=== PATIENT | male | born 1955 | race Caucasian/White ===

== ENCOUNTER 2019-12-06 06:23 | Inpatient (IN) | payer OTHER, BC ==
[2019-12-02 11:52] VITALS: BMI 34.4
[~2019-12-06 06:23] MED LIST: CELECOXIB 200 MG CAPSULE PO ONE; VANCOMYCIN 1,000 MG VIAL (RESTRICTED TO ID ONLY) IVPB ONE
[2019-12-06] MEDS ORDERED: MIDAZOLAM HCL 2 MG/2 ML SINGLE DOSE VIAL ONE ×2 (06:43→08:30)
[2019-12-06] MEDS ORDERED: BUPIVACAINE LIPOSOME/PF (EXPAREL) 266 MG/20 ML VIAL ONE (06:43)
[2019-12-06] MEDS ORDERED: SODIUM CHLORIDE 0.9% P/F 10 ML VIAL IJ ONE (06:43)
[2019-12-06] MEDS ORDERED: CELECOXIB 200 MG CAPSULE ONE (06:55)
[2019-12-06] MEDS ORDERED: SUCCINYLCHOLINE CHLORIDE 200 MG/10 ML SYRINGE ONE (07:11)
[2019-12-06] MEDS ORDERED: PROPOFOL 20 ML ONE (07:11)
[2019-12-06] MEDS ORDERED: ceFAZolin SODIUM 1 GM VIAL ONE ×4 (07:11→22:47)
[2019-12-06] MEDS ORDERED: BUPIVACAINE HCL/PF 0.5% (5MG/ML) 10 ML VIAL ONE (07:12)
[2019-12-06] MEDS ORDERED: VANCOMYCIN 1,000 MG VIAL (RESTRICTED TO ID ONLY) ONE (07:28)
[2019-12-06] MEDS ORDERED: MAG HYDROX/AL HYDROX/SIMETH 30 ML UNIT-DOSE CUP PO PRN (07:57)
[2019-12-06] MEDS ORDERED: MAGNESIUM HYDROX 2400MG/30ML ORAL SUSPENSION 30 ML CUP PO PRN (07:57)
[2019-12-06] MEDS ORDERED: ONDANSETRON 4 MG/2 ML VIAL IVPUSH PRN ×2 (07:57→10:49)
[2019-12-06] MEDS ORDERED: LACTATED RINGERS SOLUTION 1,000 ML IV SCH (08:00)
[2019-12-06] MEDS ORDERED: CEFAZOLIN 3 GM in DEXTROSE 5%-WATER - 100 ML IVPB ONE (08:00)
[2019-12-06] MEDS ORDERED: TRANEXAMIC ACID 1000 MG/10 ML VIAL IVPUSH ONE (08:00)
[2019-12-06] MEDS ORDERED: TRANEXAMIC ACID 1000 MG/10 ML VIAL ONE (08:19)
[2019-12-06] MEDS ORDERED: DEXAMETHASONE SOD PHOSPHATE 4 MG/1 ML VIAL ONE (08:20)
[2019-12-06] MEDS ORDERED: DESFLURANE GAS 240 ML BOTTLE IH ONE (09:23)
[2019-12-06] MEDS ORDERED: SEVOFLURANE 250 ML BTL ONE (09:23)
[2019-12-06] MEDS ORDERED: VANCOMYCIN 1,000 MG VIAL (RESTRICTED TO ID ONLY) IVPB ONE (09:38)
[2019-12-06] MEDS ORDERED: oxyCODONE HCL 5 MG TABLET PO PRN (10:49)
[2019-12-06] MEDS ORDERED: PROMETHAZINE HCL 25 MG/1 ML VIAL IVPUSH PRN (10:49)
[2019-12-06] MEDS: LOSARTAN POTASSIUM 50 MG TABLET PO SCH (15:39)
[2019-12-06] MEDS: SENNOSIDES/DOCUSATE COMBO (SENNA PLUS) TABLET (UD) PO SCH ×2 (16:00→21:34)
[2019-12-06] MEDS: PANTOPRAZOLE 40 MG TABLET PO SCH (16:00)
[2019-12-06] MEDS: MULTIVITAMINS (DAILY MVI) TABLET (FP) PO SCH (16:00)
[2019-12-06] MEDS ORDERED: SODIUM CHLORIDE 100 ML IVPB ONE ×2 (16:12→22:47)
[2019-12-06] MEDS: oxyCODONE HCL 5 MG TABLET PO PRN (16:37)
[2019-12-06] MEDS: ACETAMINOPHEN 325 MG TABLET (FP) PO SCH ×3 (16:41→23:19)
[2019-12-06] MEDS: CEFAZOLIN IVPB SCH ×2 (16:45→23:19)
[2019-12-06] MEDS: SODIUM CHLORIDE IVPB SCH ×2 (16:45→23:19)
[2019-12-06] MEDS: INSULIN (NOVOLOG MIX 70/30) 100 UNITS/ML MDV SQ SCH (16:50)
[2019-12-06] MEDS ORDERED: PT OWN MED DRAWER 7, Y5N ONE (19:26)
[2019-12-06] MEDS ORDERED: GABAPENTIN 300 MG CAPSULE PO SCH (22:00)
[2019-12-06] MEDS ORDERED: ATORVASTATIN CA 20 MG TABLET (FP) PO SCH (22:00)
[2019-12-07] MEDS: ACETAMINOPHEN 325 MG TABLET (FP) PO SCH ×2 (06:15→13:00)
[2019-12-07] MEDS: INSULIN (NOVOLOG MIX 70/30) 100 UNITS/ML MDV SQ SCH (07:00)
[2019-12-07] MEDS ORDERED: CLOPIDOGREL BISULFATE 75 MG TABLET (FP) PO SCH (08:00)
[2019-12-07 08:14] LABS: HEMATOCRIT 36.7 % (35.4-49); HEMOGLOBIN 12.5 GM/dl (11.7-16.9); MCH 30.1 pg (25.7-33.7); MCHC 34.2 g/dl (32.0-35.9); MEAN CELL VOLUME 88.2 fl (80-96); MEAN PLT VOLUME 9.7 fl (7.5-11.1); PLATELET COUNT 162 K/MM3 (134-434); RBC 4.16 M/mm3 (4.00-5.60); RDW 12.3 % (11.9-15.9); WHITE BLOOD COUNT 13.2 K/mm3 (4.0-10.8)
[2019-12-07] MEDS: SENNOSIDES/DOCUSATE COMBO (SENNA PLUS) TABLET (UD) PO SCH (09:44)
[2019-12-07] MEDS: PANTOPRAZOLE 40 MG TABLET PO SCH (09:44)
[2019-12-07] MEDS: MULTIVITAMINS (DAILY MVI) TABLET (FP) PO SCH (09:44)
[2019-12-07] MEDS: LOSARTAN POTASSIUM 50 MG TABLET PO SCH (09:44)
[2019-12-07] MEDS: oxyCODONE HCL 5 MG TABLET PO PRN (15:06)
[2019-12-07 15:13] VITALS: BP 115/61; PULSE 75; TEMP 97.9
[2019-12-07] MEDS ORDERED: PT OWN MED DRAWER 7, Y5N ONE (15:28)
== END 2019-12-07 16:36 | disposition home health service (06) | DRG 470 ==
LOC: FM/S 06:23
PROVIDERS: ADMIT Orthopaedic Surgery; ATTEND Orthopaedic Surgery
PROC: 8E0Y0CZ Robotic Assisted Procedure of Lower Extremity, Open Approach (ICD-10-PCS; 2019-12-06)
PROC: 0SRD0J9 Replacement of Left Knee Joint with Synthetic Substitute, Cemented, Open Approach (ICD-10-PCS; principal; 2019-12-06 08:33)
DX: M17.12 Unilateral primary osteoarthritis, left knee (principal)
CPT/HCPCS: 36415; 73560-TC-LT-FY; 82962; 85027; 88304-TC; 88311-TC; 94760; 97010-GP; 97116-GP; 97162-GP; U0003

== ENCOUNTER 2021-08-14 04:26 | Day surgery (SDC) | payer OTHER, BC ==
[2021-08-12 15:04] VITALS: BMI 34.8
[2021-08-14] MEDS ORDERED: PROPOFOL 20 ML ONE ×2 (09:11)
[2021-08-14] MEDS ORDERED: ROPIVACAINE HCL 0.5% 30ML VIAL ONE (09:45)
[2021-08-14] MEDS ORDERED: MIDAZOLAM HCL 2 MG/2 ML SINGLE DOSE VIAL ONE ×2 (09:48)
[2021-08-14] MEDS ORDERED: CEFAZOLIN 2 GM in DEXTROSE 5%-WATER - 100 ML IVPB ONE (10:00)
[2021-08-14] MEDS ORDERED: ceFAZolin SODIUM 1 GM VIAL IVPB ONE (10:28)
[2021-08-14] MEDS ORDERED: ONDANSETRON 4 MG/2 ML VIAL ONE (10:42)
[2021-08-14] MEDS ORDERED: DEXAMETHASONE SOD PHOSPHATE 4 MG/1 ML VIAL ONE (10:42)
[2021-08-14] MEDS ORDERED: ceFAZolin 2 GRAM PREMIX BAG IVPB ONE (12:00)
[2021-08-14] MEDS ORDERED: ceFAZolin SODIUM 1 GM VIAL ONE (12:03)
[2021-08-14] MEDS ORDERED: oxyCODONE HCL 5 MG TABLET PO PRN ×2 (12:28)
[2021-08-14] MEDS ORDERED: ONDANSETRON 4 MG/2 ML VIAL IVPUSH PRN (12:28)
[2021-08-14] MEDS ORDERED: LACTATED RINGERS SOLUTION 1,000 ML IV SCH (12:30)
[2021-08-14 12:38] VITALS: TEMP 98.8
[2021-08-14 14:10] VITALS: BP 151/70; PULSE 61
== END 2021-08-14 14:40 | disposition home or self-care (01) ==
LOC: JASU-SURG 04:26
PROVIDERS: ATTEND Orthopaedic Surgery
PROC: 0LM14ZZ Reattachment of Right Shoulder Tendon, Percutaneous Endoscopic Approach (ICD-10-PCS; principal; 2021-08-14 10:00)
PROC: 0RNJ4ZZ Release Right Shoulder Joint, Percutaneous Endoscopic Approach (ICD-10-PCS; 2021-08-14 10:00)
DX: M75.101 Unspecified rotator cuff tear or rupture of right shoulder, not specified as traumatic (principal); X58.XXXA Exposure to other specified factors, initial encounter; Y92.9 Unspecified place or not applicable; Y93.9 Activity, unspecified; I10 Essential (primary) hypertension; E11.9 Type 2 diabetes mellitus without complications
CPT/HCPCS: 29826; 29827; C1776; 82962; 94760

== ENCOUNTER 2021-09-25 04:27 | Day surgery (SDC) | payer OTHER, BC ==
[2021-09-23 10:59] VITALS: BMI 337.5
[~2021-09-25 04:27] MED LIST changes: +ACETAMINOPHEN 325 MG TABLET (FP) PO PRN; -CELECOXIB 200 MG CAPSULE PO ONE; -VANCOMYCIN 1,000 MG VIAL (RESTRICTED TO ID ONLY) IVPB ONE
[2021-09-25] MEDS ORDERED: TETRACAINE 0.5% OPHTH SOLN 2 ML BOTTLE ONE (07:30)
[2021-09-25] MEDS ORDERED: LIDOCAINE HCL/PF 1% SDV 5ML VIAL ONE (07:30)
[2021-09-25] MEDS ORDERED: POVIDONE-IODINE 5% OPHTHALMIC PREP 30 ML SOLUTION ONE (07:30)
[2021-09-25] MEDS ORDERED: KETOROLAC TROMETHAMINE 0.5% EYE DROP 1 DROP DROPS ONE (11:00)
[2021-09-25] MEDS ORDERED: OFLOXACIN 0.3% OPHTHALMIC SOLUTION 5 ML BOTTLE ONE (11:01)
[2021-09-25] MEDS ORDERED: PHENYLEPHRINE 2.5% OPTHALMIC DROP BOTTLE ONE (11:01)
[2021-09-25] MEDS ORDERED: CYCLOPENTOLATE HCL 1% OPHTH SOLN 2 ML BOTTLE ONE (11:01)
[2021-09-25] MEDS ORDERED: TROPICAMIDE 1% OPHTH SOLN 15 ML BOTTLE ONE (11:01)
[2021-09-25] MEDS: CYCLOPENTOLATE HCL 1% OPHTH SOLN 2 ML BOTTLE OP SCH ×3 (11:10→11:20)
[2021-09-25] MEDS: KETOROLAC TROMETHAMINE 0.5% EYE DROP 1 DROP DROPS OP SCH ×3 (11:10→11:20)
[2021-09-25] MEDS: OFLOXACIN 0.3% OPHTHALMIC SOLUTION 5 ML BOTTLE OP SCH ×3 (11:10→11:20)
[2021-09-25] MEDS: TROPICAMIDE 1% OPHTH SOLN 15 ML BOTTLE OP SCH ×3 (11:10→11:20)
[2021-09-25] MEDS: PHENYLEPHRINE 2.5% OPHTH SOLN 15 ML BOTTLE OP SCH ×3 (11:10→11:20)
[2021-09-25] MEDS ORDERED: MIDAZOLAM HCL 2 MG/2 ML SINGLE DOSE VIAL ONE (13:07)
[2021-09-25] MEDS ORDERED: LIDOCAINE HCL/PF 2% SDV 5ML VIAL ONE (13:08)
[2021-09-25] MEDS ORDERED: TETRACAINE 0.5% OPHTH SOLN 2 ML BOTTLE OS ONE (13:08)
[2021-09-25] MEDS ORDERED: POVIDONE-IODINE 5% OPHTHALMIC PREP 30 ML SOLUTION OS ONE (13:10)
[2021-09-25] MEDS ORDERED: BSS (NA/CA/MG/K) BALANCED SALT SOLUTION OPHTH SOLN 15 ML BOTTLE OS ONE (13:20)
[2021-09-25] MEDS ORDERED: LIDOCAINE HCL 1% PRESERVATIVE FREE - 30ML VIAL IO ONE ×2 (13:20→13:27)
[2021-09-25] MEDS ORDERED: MANNITOL 25% 12.5 GM/50 ML VIAL IVPB ONE (13:24)
[2021-09-25] MEDS ORDERED: CHONDROITIN SU A/HYALUR SOD 1 KIT IO ONE ×3 (13:25→13:28)
[2021-09-25] MEDS ORDERED: TRYPAN BLUE 0.5 ML DISP.SYRIN IO ONE (13:28)
[2021-09-25] MEDS ORDERED: PHENYLEPHRINE/KETOROLAC 4 ML VIAL IO ONE (13:39)
[2021-09-25] MEDS ORDERED: hydrALAZINE HCL 20 MG/ML VIAL ONE (13:44)
[2021-09-25 14:37] VITALS: BP 140/76; PULSE 78; TEMP 97.2
== END 2021-09-25 14:50 | disposition home or self-care (01) ==
LOC: JASU-SURG 04:27
PROVIDERS: ATTEND Ophthalmology
PROC: 08RK3JZ Replacement of Left Lens with Synthetic Substitute, Percutaneous Approach (ICD-10-PCS; principal; 2021-09-25 13:00)
DX: E11.36 Type 2 diabetes mellitus with diabetic cataract (principal); H57.03 Miosis; E11.319 Type 2 diabetes mellitus with unspecified diabetic retinopathy without macular edema; H21.542 Posterior synechiae (iris), left eye
CPT/HCPCS: 82962; J1097

== ENCOUNTER 2021-10-09 04:41 | Day surgery (SDC) | payer OTHER, BC ==
[2021-10-07 17:50] VITALS: BMI 34.8
[~2021-10-09 04:41] MED LIST changes: +CYCLOPENTOLATE HCL 1% OPHTH SOLN 2 ML BOTTLE OP SCH; +KETOROLAC TROMETHAMINE 0.5% EYE DROP 1 DROP DROPS OP SCH; +OFLOXACIN 0.3% OPHTHALMIC SOLUTION 5 ML BOTTLE OP SCH; +PHENYLEPHRINE 2.5% OPHTH SOLN 15 ML BOTTLE OP SCH; +TROPICAMIDE 1% OPHTH SOLN 15 ML BOTTLE OP SCH
[2021-10-09] MEDS ORDERED: CHONDROITIN SU A/HYALUR SOD 1 KIT ONE (07:16)
[2021-10-09] MEDS ORDERED: TETRACAINE 0.5% OPHTH SOLN 2 ML BOTTLE ONE (07:34)
[2021-10-09] MEDS ORDERED: POVIDONE-IODINE 5% OPHTHALMIC PREP 30 ML SOLUTION ONE (07:34)
[2021-10-09] MEDS ORDERED: CYCLOPENTOLATE HCL 1% OPHTH SOLN 2 ML BOTTLE ONE (08:53)
[2021-10-09] MEDS ORDERED: KETOROLAC TROMETHAMINE 0.5% EYE DROP 1 DROP DROPS ONE (08:53)
[2021-10-09] MEDS ORDERED: PHENYLEPHRINE 2.5% OPHTH SOLN 15 ML BOTTLE ONE (08:53)
[2021-10-09] MEDS ORDERED: OFLOXACIN 0.3% OPHTHALMIC SOLUTION 5 ML BOTTLE ONE (08:54)
[2021-10-09] MEDS ORDERED: TROPICAMIDE 1% OPHTH SOLN 15 ML BOTTLE ONE (08:54)
[2021-10-09] MEDS ORDERED: PHENYLEPHRINE 2.5% OPHTH SOLN 15 ML BOTTLE OD ONE ×3 (09:00→09:10)
[2021-10-09] MEDS ORDERED: TROPICAMIDE 1% OPHTH SOLN 15 ML BOTTLE OD ONE ×3 (09:00→09:10)
[2021-10-09] MEDS ORDERED: CYCLOPENTOLATE HCL 1% OPHTH SOLN 2 ML BOTTLE OD ONE ×3 (09:00→09:10)
[2021-10-09] MEDS ORDERED: KETOROLAC TROMETHAMINE 0.5% EYE DROP 1 DROP DROPS OD ONE ×3 (09:00→09:10)
[2021-10-09] MEDS ORDERED: OFLOXACIN 0.3% OPHTHALMIC SOLUTION 5 ML BOTTLE OD ONE ×3 (09:00→09:10)
[2021-10-09] MEDS ORDERED: MANNITOL 25% 12.5 GM/50 ML VIAL IVPB ONE (11:10)
[2021-10-09] MEDS ORDERED: MIDAZOLAM HCL 2 MG/2 ML SINGLE DOSE VIAL ONE (11:28)
[2021-10-09] MEDS ORDERED: TETRACAINE 0.5% OPHTH SOLN 2 ML BOTTLE OD ONE (11:33)
[2021-10-09] MEDS ORDERED: POVIDONE-IODINE 5% OPHTHALMIC PREP 30 ML SOLUTION OD ONE (11:35)
[2021-10-09] MEDS ORDERED: BSS (NA/CA/MG/K) BALANCED SALT SOLUTION OPHTH SOLN 15 ML BOTTLE OD ONE (11:40)
[2021-10-09] MEDS ORDERED: CHONDROITIN SU A/HYALUR SOD 1 KIT IO ONE (11:41)
[2021-10-09] MEDS ORDERED: LIDOCAINE HCL 1% PRESERVATIVE FREE - 30ML VIAL IO ONE (11:41)
[2021-10-09] MEDS ORDERED: TRYPAN BLUE 0.5 ML DISP.SYRIN IO ONE (11:42)
[2021-10-09] MEDS ORDERED: EPINEPHrine/PF 1 MG/1 ML (1:1,000) AMPULE SQ ONE (12:01)
[2021-10-09 17:07] VITALS: BP 149/82; PULSE 62; TEMP 98.3
== END 2021-10-09 13:10 | disposition home or self-care (01) ==
LOC: JASU-SURG 04:41
PROVIDERS: ATTEND Ophthalmology
PROC: 08RJ3JZ Replacement of Right Lens with Synthetic Substitute, Percutaneous Approach (ICD-10-PCS; principal; 2021-10-09 11:00)
DX: H26.9 Unspecified cataract (principal); H57.03 Miosis; H21.541 Posterior synechiae (iris), right eye
CPT/HCPCS: 66982; V2631; 82962

== ENCOUNTER 2023-04-22 03:55 | Day surgery (SDC) | payer OTHER, BC ==
[2023-04-21 14:29] VITALS: BMI 30.8
[2023-04-22 07:18] VITALS: RESP 18
[2023-04-22] MEDS ORDERED: LIDOCAINE HCL 1%, 10 MG/ML (20ML VIAL) ONE (08:25)
[2023-04-22] MEDS ORDERED: LIDOCAINE HCL 1%, 10 MG/ML (20ML VIAL) INF ONE (08:30)
[2023-04-22 09:45] VITALS: BP 113/63; PULSE 67; TEMP 98
== END 2023-04-22 09:15 | disposition home or self-care (01) ==
LOC: JASU-SURG 03:55
PROVIDERS: ATTEND Orthopaedic Surgery
PROC: 015D3ZZ Destruction of Femoral Nerve, Percutaneous Approach (ICD-10-PCS; principal; 2023-04-22 08:30)
DX: M17.11 Unilateral primary osteoarthritis, right knee (principal)